=== PATIENT | female | born 2000 | race Caucasian/White ===

== ENCOUNTER 2020-02-23 04:01 | Inpatient (IN) | payer MEDICAID ==
[2020-02-23] VITALS (35 sets, daily range): BP systolic 103–139; BP diastolic 58–85
[~2020-02-23] VITALS: Ht 165.1 cm; Wt 66.8 kg
--- NOTE | 2020-02-23 04:13 | NUR ---
DRE LOPEZ presented to unit via WC from ED, accompanied by SO, with c/o CONTRACTIONS,POSS WATER BROKE. DRE LOPEZ weighed, gowned, voided, and to bed. EFHM and TOCO applied, VS taken. DRE LOPEZ oriented to bed controls, call light, TV, heat, and A/C controls.
[2020-02-23 05:29] LABS: BILIRUBIN,URINE NEGATIVE (NEGATIVE); CLARITY,URINE CLEAR; COLOR,URINE YELLOW; GLUCOSE, URINE (UA) NEGATIVE (NEGATIVE); KETONES,URINE 2+ (NEGATIVE); LEUKOCYTE ESTERASE ,URINE NEGATIVE (NEGATIVE); NITRITE,URINE NEGATIVE (NEGATIVE); PROTEIN,URINE TRACE (NEGATIVE)
[2020-02-23 05:36] LABS: BACTERIA,URINE FEW /HPF; RBC,URINE RARE /HPF; WBC,URINE RARE /HPF
--- NOTE | 2020-02-23 05:50 | NUR ---
Dr. Cool called with update of pt. Informed of pt. contraction pattern, SVE's, and results of amnioswabs. Urine results read to and informed that pt is orally hydrating at this time. orders for pt so stay and be rechecked in two hours.
[2020-02-23] MEDS ORDERED: D5 LR IV SOLUTION 1,000 ML IV ONE (07:50)
[2020-02-23 08:23] LABS: BASOPHILS % (AUTO) 0 % (0-10); EOSINOPHILS # (AUTO) 0.1 10^3/uL (0.0-0.3); EOSINOPHILS % (AUTO) 1 % (0-10); HEMATOCRIT 37 % (35-52); HEMOGLOBIN 12.6 G/DL (11.5-16.0); LYMPHOCYTES # (AUTO) 1.9 X 10^3 (1.0-4.0); LYMPHOCYTES % (AUTO) 17 % (12-44); MEAN CORPUSCULAR HEMOGLOBIN 31 PG (25-34); MEAN CORPUSCULAR HGB CONC 34 G/DL (32-36); MEAN CORPUSCULAR VOLUME 91 FL (80-99); MEAN PLATELET VOLUME 10.8 FL (7.4-10.4); MONOCYTES # (AUTO) 0.9 X 10^3 (0.0-1.0); MONOCYTES % (AUTO) 8 % (0-12); NEUTROPHILS # (AUTO) 8.2 X 10^3 (1.8-7.8); NEUTROPHILS % (AUTO) 74 % (42-75); PLATELET COUNT 318 10^3/uL (130-400); RED CELL DISTRIBUTION WIDTH 13.1 % (10.0-14.5); WHITE BLOOD COUNT 11.1 10^3/uL (4.3-11.0)
[2020-02-23] MEDS ORDERED: D5 LR IV SOLUTION 1,000 ML IV SCH (08:25)
[2020-02-23] MEDS ORDERED: OXYTOCIN PRE-MIX DRIP 500 ML IV SCH ×2 (08:25→11:52)
[2020-02-23] MEDS ORDERED: MINERAL OIL CONCENTRATE 99.9% 15 ML UDC TOP PRN (08:30)
[2020-02-23] MEDS ORDERED: fentaNYL 2 mcg/ml BUPIVA 0.125 100 ML ONE (08:30)
[2020-02-23] MEDS ORDERED: fentaNYL INJECTION 100 MCG/2 ML AMP ONE (08:45)
[2020-02-23] MEDS ORDERED: BUPIVACAINE 0.25% 30 ML (SENSORCAINE) VIAL ONE (08:45)
--- NOTE | 2020-02-23 08:53 | NUR ---
0853 Dr. DEL REAL here for epidural placement. Procedure explained, consent reviewed and signed by anesthesia. Questions answered to patient's satisfaction. Time out taken to verify correct patient/procedure. 0855 Patient up to side of bed, assisted into sitting position. 0859 Betadine prep done x3 and sterile drape applied. 0901 (0902) Local done, see anesthesia record. 0906 Test dose given, see anesthesia record for drug and dosage. Epidural catheter secured in place. Epidural placement complete. 0910 Assisted back into bed, monitors adjusted. Epidural dosed, see anesthesia record. Epidural of Sufenta/Bupvicaine @12cc/hr stated per pump. Patient tolerated procedure well.
[2020-02-23] MEDS ORDERED: WATER (STERILE) FOR INJECTION 20 ML ONE (10:15)
[2020-02-23] MEDS ORDERED: ONDANSETRON 4 MG/2 ML (SDV) Z0FRAN ONE (10:15)
[2020-02-23] MEDS ORDERED: AMPICILLIN FOR IV USE 2,000 MG VIAL ONE (10:15)
[2020-02-23] MEDS ORDERED: AMPICILLIN FOR IV USE 2,000 MG in WATER (STERILE) FOR INJECTION 14.8 ML IV SCH (10:20)
[2020-02-23] MEDS ORDERED: fentaNYL 2 mcg/ml BUPIVA 0.125 100 ML IV SCH (11:03)
[2020-02-23] MEDS ORDERED: LACTATED RINGERS 1,000 ML IV ONE (11:03)
[2020-02-23] MEDS ORDERED: LIDOCAINE 1% INJ 20 ML 20 ML VIAL ONE (11:04)
[2020-02-23] MEDS ORDERED: CATHETER FLUSH 10 ML SYR IV PRN (11:15)
[2020-02-23] MEDS ORDERED: EPIDURAL (fentaNYL 2 MCG/ML BUPIVA 0.125%)100 ML BAG EPI SCH (11:15)
[2020-02-23] MEDS ORDERED: ONDANSETRON 4 MG/2 ML (SDV) Z0FRAN IV PRN (11:15)
[2020-02-23] MEDS ORDERED: NALOXONE 0.4 MG/ML 1 ML (NARCAN) VIAL IV PRN (11:15)
[2020-02-23] MEDS ORDERED: diphenhydrAMINE 50 MG/ML INJ (BENADRYL) IV PRN (11:15)
--- NOTE | 2020-02-23 11:52 | History & Physical-OB/GYN ---
History of Present Illness History of Present Illness Reason for visit/HPI Ms. Prakash presented secondary to leaking bloody fluid at 38 weeks Date of Admission February 23, 2020 at 07:56 Date Seen by a Provider: February 23, 2020 Time Seen by a Provider: 09:00 I consulted on this patient on 02/23/20 11:46 Attending Physician Niels Cool DO Admitting Physician Niels Cool DO Consult Allergies and Home Medications Allergies Coded Allergies: No Known Drug Allergies (Unverified , 02/23/20) Home Medications No Active Prescriptions or Reported Meds Patient Home Medication List Home Medication List Reviewed: Yes Past Uippkyz-Wotphw-Zrewct Hx Patient Social History Marrital Status: single Number of Children: 0 Number of living children: 0 Employed/Student: unemployed Alcohol Use: Denies Use Recreational Drug Use: No Smoking Status: Current Everyday Smoker Type Used: Cigarettes 2nd Hand Smoke Exposure: No Physical Abuse Screen: No Sexual Abuse: No Recent Foreign Travel: No Contact w/other who traveled: No Recent Hopitalizations: No Immunizations Up To Date Pediatric: Yes Seasonal Allergies Seasonal Allergies: Yes Surgeries No Respiratory No Cardiovascular No Neurological No Reproductive System Expected Date of Delivery: March 12, 2020 Hx : 1 Hx Para: 0 Sexually Transmitted Disease: Yes (HX: CHLAMYDIA) HIV/AIDS: No Female Reproductive Disorders: Denies Genitourinary No Gastrointestinal No Musculoskeletal No Endocrine History of Endocrine Disorders: No HEENT History of HEENT Disorders: No Cancer No Psychosocial History of Psychiatric Problem: Yes (WHEN 12 Y/1- SUICIDE ATTEMPT) Behavioral Health Disorders: Suicide Attempts, Depression Integumentary History of Skin or Integumenta: No Blood Transfusions History of Blood Disorders: No Adverse Reaction to a Blood Tr: No Family Medical History Family Hx: FH: rheumatoid arthritis 19 FATHER Review of Systems Constitutional: see HPI Physical Exam Physical Exam Vital Signs Vital Signs Date Time Temp Pulse Resp B/P (MAP) Pulse Ox O2 Delivery O2 Flow Rate FiO2 02/23/20 06:22 36.8 68 18 134/84 (101) Room Air 02/23/20 05:01 36.7 77 18 97 Room Air 02/23/20 04:56 36.7 74 18 97 Room Air Capillary Refill : Less Than 3 Seconds Labs Laboratory Tests 02/23/20 04:40: Urine Color YELLOW, Urine Clarity CLEAR, Urine pH 7.0, Urine Specific [place] 1.025H, Urine Protein TRACEH, Urine Glucose (UA) NEGATIVE, Urine Ketones 2+H, Urine Nitrite NEGATIVE, Urine Bilirubin NEGATIVE, Urine Urobilinogen 0.2, Urine Leukocyte Esterase NEGATIVE, Urine RBC (Auto) 3+H, Urine RBC RARE, Urine WBC RARE, Urine Squamous Epithelial Cells 5-10, Urine Renal Epithelial Cells NONE, Urine Crystals NONE, Urine Bacteria FEWH, Urine Casts NONE, Urine Mucus NEGATIVE, Urine Culture Indicated NO 02/23/20 08:05: White Blood Count 11.1H, Red Blood Count 4.10L, Hemoglobin 12.6, Hematocrit 37, Mean Corpuscular Volume 91, Mean Corpuscular Hemoglobin 31, Mean Corpuscular Hemoglobin Concent 34, Red Cell Distribution Width 13.1, Platelet Count 318, Mean Platelet Volume 10.8H, Neutrophils (%) (Auto) 74, Lymphocytes (%) (Auto) 17, Monocytes (%) (Auto) 8, Eosinophils (%) (Auto) 1, Basophils (%) (Auto) 0, Neutrophils # (Auto) 8.2H, Lymphocytes # (Auto) 1.9, Monocytes # (Auto) 0.9, Eosinophils # (Auto) 0.1, Basophils # (Auto) 0.0 General Appearance: No Apparent Distress, WD/WN Respiratory: Chest Non Tender, Lungs Clear, Normal Breath Sounds Cardiovascular: Regular Rate, Rhythm, No Murmur Abdominal: normal bowel sounds Labia: WNL Vagina: WNL Cervix: WNL Cervix OS: open (4 cm/90%/0 Vertex/Intact) Uterus: Enlarged (Gravid) Extremity: Normal Inspection, Non Tender Assessment/Plan Assessment and Plan Intrauterine at 38 weeks 2. GBS Positive Plan: Augment labor with Pitocin. AROM. Epidural Anesthesia. I expect a normal spontaneous vaginal delivery Admission Diagnosis Admission Status: Inpatient Order (span 2 midnights) Reason for Inpatient Admission: Active labor Clinical Quality Measures DVT/VTE Risk/Contraindication: Risk Factor Score Per Nursin RFS Level Per Nursing on Admit: 2=Moderate NIESL COOL DO February 23, 2020 11:52
--- NOTE | 2020-02-23 11:57 | OB Labor & Delivery Record ---
Vag Delivery Note Vag Delivery Note Date of Delivery: 02/23/20 Preoperative Diagnosis: Karli Prakash is a (19 /Para 1 / 0,Gestational Age (wks)37with [GBS Positive] Postoperative Diagnosis: Same Surgeon: MONY JENSEN Hotel Night Auditor: [None] Anesthesia: [Epidural] Delivery Type: [Normal Spontaneous Vaginal Delivery with Midline Episiotomy] Findings: [] Viable [Female] infant, apgars [], weight [5 lb 15 oz] Lacerations: Midline Episiotomy, no extension Intact placenta with 3 vessel cord. No nuchal cord, body cord or shoulder dystocia Cytotec 800 mcg placed for hemorrhage prophylaxis Estimated Blood Loss: [300] ml Complications: None Condition: Stable Description of Procedure: The patient is a 19 year old female who presented [with the onset of contractions and pelvic pressure]. She was admitted and informed consent was obtained. Her labor course was unremarkable. She progressed to complete dilatation and began to push. She was then set up for delivery. The 's head was delivered atraumatically in the [CHANA] position. The shoulders and remainder of the infant's body were then delivered without difficulty. Upon delivery, the head was held below the level of the perineum and the mouth and nares were bulb suctioned. The cord was doubly clamped and cut and the was handed off to the pediatric staff where NRP protocol was followed. An intact placenta with 3-vessel cord delivered via Eleonora and there was found to be minimal bleeding.~ Vigorous fundal massage was performed and the fundus was found to be firm. IV oxytocin was given. Examination of the vagina and perineum revealed a [midline episiotomy with no extension laceration repaired in the usual fashion with 2-0 and 3-0 vicryl suture. Following the repair, sponge, instrument and needle counts were correct. Mom and baby were both in stable condition in the labor suite. Vitals - Labs Vital Signs - I&O Vital Signs Date Time Temp Pulse Resp B/P (MAP) Pulse Ox O2 Delivery O2 Flow Rate FiO2 02/23/20 06:22 36.8 68 18 134/84 (101) Room Air 02/23/20 05:01 36.7 77 18 97 Room Air 02/23/20 04:56 36.7 74 18 97 Room Air Labs Laboratory Tests 02/23/20 04:40: Urine Color YELLOW, Urine Clarity CLEAR, Urine pH 7.0, Urine Specific [place] 1.025H, Urine Protein TRACEH, Urine Glucose (UA) NEGATIVE, Urine Ketones 2+H, Urine Nitrite NEGATIVE, Urine Bilirubin NEGATIVE, Urine Urobilinogen 0.2, Urine Leukocyte Esterase NEGATIVE, Urine RBC (Auto) 3+H, Urine RBC RARE, Urine WBC RARE, Urine Squamous Epithelial Cells 5-10, Urine Renal Epithelial Cells NONE, Urine Crystals NONE, Urine Bacteria FEWH, Urine Casts NONE, Urine Mucus NEGATIVE, Urine Culture Indicated NO 02/23/20 08:05: White Blood Count 11.1H, Red Blood Count 4.10L, Hemoglobin 12.6, Hematocrit 37, Mean Corpuscular Volume 91, Mean Corpuscular Hemoglobin 31, Mean Corpuscular Hemoglobin Concent 34, Red Cell Distribution Width 13.1, Platelet Count 318, Mean Platelet Volume 10.8H, Neutrophils (%) (Auto) 74, Lymphocytes (%) (Auto) 17, Monocytes (%) (Auto) 8, Eosinophils (%) (Auto) 1, Basophils (%) (Auto) 0, Neutrophils # (Auto) 8.2H, Lymphocytes # (Auto) 1.9, Monocytes # (Auto) 0.9, Eosinophils # (Auto) 0.1, Basophils # (Auto) 0.0 MONY JENSEN DO February 23, 2020 11:57
[2020-02-23] MEDS ORDERED: BENZOCAINE/MENTHOL (DERMOPLAST) 60 ML CAN TP PRN (12:00)
[2020-02-23] MEDS ORDERED: MEASLES,MUMPS,RUBELLA 1 EA INJ SQ ONE (12:00)
[2020-02-23] MEDS ORDERED: TETANUS,DIPTH,PERTUSS P/F (BOOSTRIX) 0.5 ML VIAL IM ONE (12:00)
[2020-02-23] MEDS ORDERED: WITCH HAZEL(TUCKS) 40 EA JAR TOP PRN (12:00)
[2020-02-23] MEDS ORDERED: DIBUCAINE (NUPERCAINAL) 1% OINT 30 GM TOP PRN (12:00)
[2020-02-23] MEDS: ACETAMINOPHEN 500 MG TAB (TYLENOL) PO SCH ×2 (12:01→18:56)
[2020-02-23] MEDS: IBUPROFEN 800 MG (MOTRIN) TAB PO SCH (13:54)
[2020-02-23] MEDS ORDERED: CATHETER FLUSH 10 ML SYR IV SCH ×2 (14:00)
[2020-02-23] MEDS ORDERED: AMPICILLIN FOR IV USE 1,000 MG in WATER (STERILE) FOR INJECTION 7.4 ML IV SCH (14:30)
--- NOTE | 2020-02-23 14:49 | NUR ---
REFER TO LABOR FLOW SHEET.
[2020-02-24 01:00] VITALS: BP 116/79
[2020-02-24] MEDS: IBUPROFEN 800 MG (MOTRIN) TAB PO SCH ×2 (01:03→09:37)
[2020-02-24] MEDS: DOCUSATE SODIUM 100 MG (COLACE) CAP PO SCH ×2 (01:03→09:37)
[2020-02-24] MEDS: ACETAMINOPHEN 500 MG TAB (TYLENOL) PO SCH ×3 (01:03→13:11)
[2020-02-24 05:19] VITALS: BP 114/69
[2020-02-24 06:11] LABS: BASOPHILS % (AUTO) 0 % (0-10); EOSINOPHILS # (AUTO) 0.1 10^3/uL (0.0-0.3); EOSINOPHILS % (AUTO) 1 % (0-10); HEMATOCRIT 36 % (35-52); HEMOGLOBIN 12.1 G/DL (11.5-16.0); LYMPHOCYTES # (AUTO) 2.7 X 10^3 (1.0-4.0); LYMPHOCYTES % (AUTO) 20 % (12-44); MEAN CORPUSCULAR HEMOGLOBIN 31 PG (25-34); MEAN CORPUSCULAR HGB CONC 34 G/DL (32-36); MEAN CORPUSCULAR VOLUME 92 FL (80-99); MEAN PLATELET VOLUME 10.6 FL (7.4-10.4); MONOCYTES # (AUTO) 0.9 X 10^3 (0.0-1.0); MONOCYTES % (AUTO) 7 % (0-12); NEUTROPHILS % (AUTO) 73 % (42-75); PLATELET COUNT 302 10^3/uL (130-400); WHITE BLOOD COUNT 13.7 10^3/uL (4.3-11.0)
[2020-02-24] MEDS ORDERED: PRENATAL VITAMIN 1 EA TAB PO SCH (07:00)
--- NOTE | 2020-02-24 07:25 | NUR ---
Dr. Cool here to see pt. Plan to discharge pt at 24hrs.
[2020-02-24] MEDS ORDERED: IBUP-1780 PO (07:35)
[2020-02-24] MEDS ORDERED: OXYC5TAB96 PO (07:35)
[2020-02-24] MEDS ORDERED: ACET-93 PO (07:35)
[2020-02-24] MEDS ORDERED: DCS100C PO (07:35)
--- NOTE | 2020-02-24 07:43 | Discharge Summary ---
Diagnosis/Chief Complaint Date of Admission February 23, 2020 at 07:56 Date of Discharge January 25, 2020 Discharge Date: February 24, 2020 Discharge Time: 12:00 Admission Diagnosis Admission Diagnosis Intrauterine at 38 1/7 weeks 2. GBS Positive Discharge Diagnosis Intrauterine at 38 1/7 weeks--delivered 2. GBS Positive Reason Hospital Visit Ms. Prakash presented secondary to leaking bloody fluid at 38 weeks Discharge Summary Hospital Course Was the Problem List Reviewed?: Yes Hospital Course Ms. Prakash presented to Labor & Delivery at 38 1/7 weeks stating that she is leaking fluid. She wasn't ruptured, but she was kasandra regularly. She was monitored and found to have definitive cervical change--going from 2 cm to 4.5 cm. At this point she was admitted for the onset of labor. She was Group B Strept Positive, consequently, IV antibiotics were started along with Pitocin for augmentation. I artificially rupture her membranes and she received an epidural for antepartum pain management. She progressed to complete rapidly. After a short course of pushing delivered a healthy viable female over a midline episiotomy. Her episiotomy was repaired in the normal standard fashion. The remainder of her hospitalization was unremarkable. Her vital signs remained stable throughout her hospital course. On day #1, she was discharged to home with instructions, prescriptions and a follow up appointment. Labs Laboratory Tests 02/23/20 04:40: Urine Specific [place] 1.025H, Urine Protein TRACEH, Urine Ketones 2+H, Urine RBC (Auto) 3+H, Urine Bacteria FEWH 02/23/20 08:05: White Blood Count 11.1H, Red Blood Count 4.10L, Mean Platelet Volume 10.8H, Neutrophils # (Auto) 8.2H 02/24/20 05:46: White Blood Count 13.7H, Red Blood Count 3.91L, Mean Platelet Volume 10.6H, Neutrophils # (Auto) 10.0H Procedures None. Discharge Physical Examination Allergies: Coded Allergies: No Known Drug Allergies (Unverified , 02/23/20) Vitals & I&Os Vital Signs Date Time Temp Pulse Resp B/P (MAP) Pulse Ox O2 Delivery O2 Flow Rate FiO2 02/24/20 05:19 36.5 70 18 114/69 (84) 97 Room Air General Appearance: Alert, Oriented X3, Cooperative HEENT: Atraumatic Respiratory: Clear to Auscultation, Normal Air Movement Cardiovascular: Regular Rate, No Murmurs Abdominal: Normal Bowel Sounds, Soft, No Tenderness Extremities: No Clubbing, No Cyanosis Skin: No Rashes Neuro: Normal Gait, Normal Speech Psych/Mental Status: Mental Status NL Discharge Home Medications Reviewed and agree with Discharge Medication list on patient's Discharge Instruction sheet Instructions to Patient/Family Please see electronic discharge instructions given to patient. Clinical Quality Measures DVT/VTE Risk/Contraindication: Risk Factor Score Per Nursin RFS Level Per Nursing on Admit: 2=Moderate MONY JENSEN DO February 24, 2020 07:43
--- NOTE | 2020-02-24 08:49 | Anesthesia-Regional Post-Op ---
Regional Patient Condition Mental Status: Alert, Oriented x3 Circulation: Same as Pre-Op Headache: Absent Sensation: Full Recovery Motor Block: Absent Post Op Complications Complications None Follow Up Care/Instructions Patient Instructions None needed. Anesthesia/Patient Condition Patient is doing well, no complaints, stable vital signs, no apparent adverse anesthesia problems. No complications reported per nursing. MANOLO SMITH CRNA February 24, 2020 08:49
[2020-02-24 09:35] VITALS: BP 117/63
--- NOTE | 2020-02-24 13:40 | NUR ---
Dismissal instructions reviewed with patient. States understanding. Asked appropriate questions.
--- NOTE | 2020-02-24 14:00 | NUR ---
Dismissed ambulatory with , out hospital exit to private car. Follow up appointment made. Prescriptions given. Infant restrained in approved car seat.
== END 2020-02-24 14:00 | disposition home or self-care (01) | DRG 807 ==
LOC: LDRP 04:01 → WSo 04:01 → LDRP 07:56
PROVIDERS: ADMIT Obstetrics & Gynecology; ATTEND Obstetrics & Gynecology
PROC: 10E0XZZ Delivery of Products of Conception, External Approach (ICD-10-PCS; principal; 2020-02-23)
PROC: 0W8NXZZ Division of Female Perineum, External Approach (ICD-10-PCS; 2020-02-23)
DX: O99.824 Streptococcus B carrier state complicating childbirth (principal); Z37.0 Single live birth; Z3A.38 38 weeks gestation of pregnancy; O99.334 Smoking (tobacco) complicating childbirth; F17.210 Nicotine dependence, cigarettes, uncomplicated; O99.344 Other mental disorders complicating childbirth; F32.9 Major depressive disorder, single episode, unspecified
CPT/HCPCS: 36415; 81000; 85025; 86850; 86900; 86901; 87077; 87088; 99212

== ENCOUNTER 2020-12-17 18:40 | Emergency (ER) | payer MEDICAID ==
[~2020-12-17 18:40] MED LIST: ACET-93 PO; DCS100C PO; IBUP-1780 PO; OXC5T PO
[2020-12-17] MEDS ORDERED: LIDOCAINE 1% INJ 20 ML 20 ML VIAL ONE (18:45)
[2020-12-17] MEDS ORDERED: morphine INJ 10 MG/ML 1ML (SYR OR VIAL) IM STA (19:01)
[2020-12-17] MEDS ORDERED: ONDANSETRON 4 MG (ZOFRAN) ORAL DISSOLVE TAB PO STA (19:01)
--- NOTE | 2020-12-17 19:46 | ED Upper Extremity ---
General Chief Complaint: Laceration Stated Complaint: RT RING FINGER LAC Nursing Triage Note: Has laceration on R fourth finger from a carrera chain. States she saw the bone when it happened. Is UTD on tetanus vaccine. Nursing Sepsis Screen: No Definite Risk Source: patient Exam Limitations: no limitations History of Present Illness Date Seen by Provider: Dec 17, 2020 Time Seen by Provider: 19:00 Initial Comments Patient is a 20-year-old right-handed female who presents with large laceration Y-shaped flap avulsion with exposed tendon involving the flexor surface of right ring finger. Patient cut her finger on a keychain ring which tore the skin. Patient has 7 cm flap. Neurovascularly intact. Bleeding controlled. Tetanus up-to-date. Injury occurred just prior to ED arrival. Onset: just prior to arrival Pain/Injury Location: right hand Method of Injury: other Modifying Factors: Improves With Other Allergies and Home Medications Allergies Coded Allergies: No Known Drug Allergies (Unverified , 02/23/20) Home Medications Acetaminophen 500 Mg Tablet, 1,000 MG PO Q6HR Prescribed by: MONY DIANAS on 02/24/20 0735 Docusate Sodium 100 Mg Capsule, 100 MG PO BID Prescribed by: MONY E SEALS on 02/24/20 0735 Ibuprofen 800 Mg Tablet, 800 MG PO Q8HR Prescribed by: MONY E SEALS on 02/24/20 0735 Oxycodone Hcl 5 Mg Tablet, 5 MG PO Q6H Prescribed by: MONY E SEALS on 02/24/20 0735 Patient Home Medication List Home Medication List Reviewed: Yes Review of Systems Constitutional: see HPI EENTM: see HPI Respiratory: see HPI Cardiovascular: see HPI Gastrointestinal: see HPI : Yes Musculoskeletal: see HPI Skin: see HPI Psychiatric/Neurological: See HPI All Other Systems Reviewed Negative Unless Noted: Yes Past Mbszzyd-Gmuexg-Bzrkdu Hx Past Med/Social Hx: Reviewed Nursing Past Med/Soc Hx Patient Social History Alcohol Use: Denies Use Drug of Choice: marijauna Smoking Status: Current Everyday Smoker Type Used: Cigarettes 2nd Hand Smoke Exposure: No Recent Infectious Disease Expo: No Recent Hopitalizations: No Immunizations Up To Date Tetanus Booster (TDap): Unknown PED Vaccines UTD: Yes Seasonal Allergies Seasonal Allergies: Yes Past Medical History Surgeries: No Respiratory: No Cardiac: No Neurological: No Female Reproductive Disorders: Denies Sexually Transmitted Disease: Yes (HX: CHLAMYDIA) HIV/AIDS: No Genitourinary: No Gastrointestinal: No Musculoskeletal: No Endocrine: No HEENT: No Cancer: No Psychosocial: Yes (WHEN 12 Y/1- SUICIDE ATTEMPT) Suicide Attempts, Depression Integumentary: No Blood Disorders: No Adverse Reaction/Blood Tranf: No Family Medical History FH: rheumatoid arthritis 19 FATHER Physical Exam Vital Signs Vital Signs - First Documented 12/17/20 18:43 Temp 37.0 Pulse 105 Resp 16 B/P (MAP) 119/76 (90) Pulse Ox 98 Capillary Refill : Less Than 3 Seconds Height, Weight, BMI Height: '" Weight: lbs. oz. kg; 24.50 BMI Method: General Appearance: mild distress (Secondary to pain) Hand: Right ( 7cm large laceration Y-shaped flap avulsion with exposed tendon involving the flexor surface of right ring finger extending from proximal ph alanx to middle phalanx) Procedures/Interventions Wound Location: Upper Extremities Wound Length (cm): 7 Wound Explored: no foreign body removed Irrigated w/ Saline (ccs): 200 Anesthesia: 1% Lidocaine Volume Anesthetic (ccs): 5 Wound Debrided: minimal Suture: Prolene Suture Size: 4-0 Number of Sutures: 14 (Running locking sutures) Layer Closure?: 1 Sterile Dressing Applied?: Yes Progress Patient tolerated procedure well. Progress/Results/Core Measures Results/Orders My Orders Orders - BRONSON FINNEY DO Lidocaine 1% Inj 20 Ml (Xylocaine 1% Inj (12/17/20 18:45) Morphine Injection (Morphine Injection (12/17/20 19:01) Ondansetron Oral Dissolve Tab (Zofran (12/17/20 19:01) Medications Given in ED Current Medications Medications Dose Ordered Sig/Maggie Route Start Time Stop Time Status Last Admin Dose Admin Lidocaine HCl 20 ml STK-MED ONCE .ROUTE 12/17/20 18:45 12/17/20 18:51 DC 12/17/20 18:57 20 ML Vital Signs/I&O 12/17/20 18:43 Temp 37.0 Pulse 105 Resp 16 B/P (MAP) 119/76 (90) Pulse Ox 98 Blood Pressure Mean: 90 Departure Communication (Admissions) Wound cleaned, and closed with good wound edge approximation and then bandage. Typical wound care instructions provided. Return precautions reviewed. Patient verbalizes understanding agreement discharge instructions prior to departure.. Impression Primary Impression: Laceration of right ring finger Disposition: HOME, SELF-CARE Condition: Stable Departure-Patient Inst. Decision time for Depature: 20:02 Referrals: NO,LOCAL PHYSICIAN (PCP/Family) Primary Care Physician Patient Instructions: Laceration Repair With Stitches ED Add. Discharge Instructions: Please keep wound clean covered and dry. Take ibuprofen for pain and hydrocodone as needed for additional relief. Complete full course of antibiotics. Return to the ED if signs of infection or in 12 days for suture removal. All discharge instructions reviewed with patient and/or family. Voiced understanding. Scripts Hydrocodone/Acetaminophen (Hydrocodone-Acetamin 5-325 mg) 1 Each Tablet 1 TAB PO Q4H PRN for PAIN-MODERATE (5-7), #14 TAB Prov: BRONSON FINNEY DO 12/17/20 Cephalexin (Cephalexin) 500 Mg Tablet 500 MG PO TID for 21 Days, TAB Prov: BRONSON FINNEY DO 12/17/20 BRONSON FINNEY DO Dec 17, 2020 19:46
[2020-12-17] MEDS ORDERED: ACHD5005 PO (20:04)
[2020-12-17] MEDS ORDERED: CEPH500T PO (20:04)
[2020-12-17 20:11] VITALS: BP 106/82
== END 2020-12-17 20:11 | disposition home or self-care (01) ==
LOC: EDUNIT# 18:40 → ER FS 18:41
DX: S61.214A Laceration without foreign body of right ring finger without damage to nail, initial encounter (principal); F17.210 Nicotine dependence, cigarettes, uncomplicated; Z82.61 Family history of arthritis; W49.04XA Ring or other jewelry causing external constriction, initial encounter
CPT/HCPCS: 12002

== ENCOUNTER 2020-12-28 13:15 | Emergency (ER) | payer MEDICAID ==
[~2020-12-28] VITALS: Ht 165.1 cm; Wt 75.0 kg
[~2020-12-28 13:15] MED LIST changes: +ACHD5005 PO; +CEPH500T PO
--- NOTE | 2020-12-28 13:30 | ED Suture Removal/Wound Check ---
Suture/Wound Re-check Suture Removal/Wound Recheck : Suture Removal/Wound Recheck: Sutures removed by RN General Appearance: WD/WN, no apparent distress Neuro/Tendon: normal motor functions, normal tendon functions, sensory deficit (decreased sensation to light touch on lateral aspect of tip of finger) Skin Exam: normal color, warm/dry Physical Exam Vital Signs Capillary Refill : General Appearance: WD/WN, no apparent distress Extremities: normal capillary refill Departure Impression Primary Impression: Encounter for removal of sutures Disposition: HOME, SELF-CARE Condition: Stable Departure-Patient Inst. Decision time for Depature: 13:28 Referrals: NO,LOCAL PHYSICIAN (PCP) Primary Care Physician EZRA FAUST MD [facility] Patient Instructions: SUTURE REMOVAL - UNCOMPLICATED Add. Discharge Instructions: Keep clean with soap and water but do not soak your hands or the finger If you have any additional concerns or problems you could follow up with Orthopedics and see Dr. Faust or his Nurse Practitioner Isaac Ramos by calling [phone]. You could establish care with a primary care provider by calling [phone] to get established with someone from the [facility]. All discharge instructions reviewed with patient and/or family. Voiced understanding. SKINNY BLISS MD Dec 28, 2020 13:30
[2020-12-28 13:40] VITALS: BP 115/56
== END 2020-12-28 13:38 | disposition home or self-care (01) ==
LOC: EDUNIT# 13:15 → ER FS 13:18
DX: Z48.02 Encounter for removal of sutures (principal)

== ENCOUNTER 2022-10-09 20:55 | Emergency (ER) | payer MEDICAID ==
[~2022-10-09] VITALS: Ht 167.7 cm; Wt 72.0 kg
[~2022-10-09 20:55] MED LIST changes: -DCS100C PO; +DOCU-239 PO
[2022-10-09 21:40] VITALS: BP 118/81
[2022-10-09] MEDS ORDERED: cefTRIAXone 1,000 MG VIAL IM STA (21:58)
[2022-10-09] MEDS ORDERED: LIDOCAINE 1% INJ 20 ML VIAL INJ ONE (22:00)
--- NOTE | 2022-10-09 22:05 | ED EENT ---
History of Present Illness General Chief Complaint: Ear Problems Stated Complaint: L EAR PAIN/CAN NOT HEAR Nursing Triage Note: Pt presents with c/o L ear pain that started earlier today. She reports taking nyquil with no relief. Source: patient History of Present Illness Date Seen by Provider: Oct 09, 2022 Time Seen by Provider: 21:44 Initial Comments 22-year-old female presenting with complaints of sudden onset left ear pain this evening. She has had an upper respiratory infection since September 21. She felt like she was improving but then today had the onset of left ear pain. She did have recurrent ear infections as a child. She has decreased hearing out of the left ear and increased pain. She tried taking NyQuil for her symptoms but it did not help with the pain. She has had no bleeding or drainage from the left e ar. She denies any fever, chills, abdominal pain, vision change, headache, sore throat Timing/Duration: abrupt Severity: severe Location: ear (L) Prearrival Treatment: over the counter meds Modifying Factors: Worse With Coughing Associated Symptoms: change in hearing (Decreased hearing from the left ear), cough; No drooling, No ear drainage, No facial pain/swelling, No fever, No malaise, No nasal congestion/drainage, No poor fluid intake, No poor solids intake, No sinus infection, No sore throat, No tooth pain, No voice change Allergies and Home Medications Allergies Coded Allergies: No Known Drug Allergies (Unverified , 02/23/20) Patient Home Medication List Home Medication List Reviewed: Yes Acetaminophen (Acetaminophen) 500 Mg Tablet, 1,000 MG PO Q6HR Prescribed by: MONY JENSEN on 02/24/20 0735 Amoxicillin/Potassium Clav (Amox Tr-K Clv 875-125 mg Tab) 875 Mg-125 Mg Tablet, 1 EACH PO BID Prescribed by: SKINNY BLISS on 10/09/222205 Cephalexin (Cephalexin) 500 Mg Tablet, 500 MG PO TID Prescribed by: BRONSON FINNEY on 12/17/202003 Docusate Sodium (Dok) 100 Mg Capsule, 100 MG PO BID Prescribed by: MONY JENSEN on 02/24/20 0735 Hydrocodone/Acetaminophen (Hydrocodone-Acetamin 5-325 mg) 1 Each Tablet, 1 TAB PO Q4H PRN for PAIN-MODERATE (5-7) Prescribed by: BRONSON FINNEY on 12/17/202003 Ibuprofen (Ibuprofen) 800 Mg Tablet, 800 MG PO Q8HR Prescribed by: MONY JENSEN on 02/24/20 07 Mometasone Furoate (Mometasone Furoate) 50 Mcg/Actuation [place].pump, 2 SPRAYS NS BID Prescribed by: SKINNY BLISS on 10/09/222205 Oxycodone Hcl (Oxyir Tablet) 5 Mg Tablet, 5 MG PO Q6H Prescribed by: MONY JENSEN on 02/24/20 07 Review of Systems Review of Systems Constitutional: No chills, No fever Eyes: No Symptoms Reported Ears: See HPI Nose: no symptoms reported Mouth: no symptoms reported Throat: no symptoms reported Respiratory: cough Cardiovascular: no symptoms reported Gastrointestinal: no symptoms reported Musculoskeletal: no symptoms reported Skin: No rash Neurological: Headache (Left-sided headache due to ear pain) Past Sylhcnz-Nxlcdc-Hlqozb Hx Immunizations Up To Date Tetanus Booster (TDap): Unknown PED Vaccines UTD: Yes Seasonal Allergies Seasonal Allergies: Yes Past Medical History Surgeries: No Respiratory: No Cardiac: No Neurological: No Female Reproductive Disorders: Denies Sexually Transmitted Disease: Yes (HX: CHLAMYDIA) HIV/AIDS: No Genitourinary: No Gastrointestinal: No Musculoskeletal: No Endocrine: No HEENT: No Cancer: No Psychosocial: Yes (WHEN 12 Y/1- SUICIDE ATTEMPT) Suicide Attempts, Depression Integumentary: No Blood Disorders: No Adverse Reaction/Blood Tranf: No Family Medical History FH: rheumatoid arthritis 19 FATHER Physical Exam Vital Signs Vital Signs - First Documented 10/09/22 21:40 Temp 36.8 Pulse 88 Resp 18 B/P (MAP) 118/81 (93) Height, Weight, BMI Height: '" Weight: lbs. oz. kg; 25.00 BMI Method: General Appearance: WD/WN, mild distress Eyes: bilateral eye PERRL, bilateral eye EOMI Ears: left ear erythema (External auditory canal with erythema and red, dull, bulging TM), left ear TM red, left ear TM bulging; bilateral ear TM dull Nose: normal inspection Mouth/Throat: normal mouth inspection, pharynx normal Neck: non-tender, full range of motion, supple, lymphadenopathy (L) Cardiovascular: normal peripheral pulses, regular rate, rhythm Respiratory: chest non-tender, lungs clear, normal breath sounds, no respiratory distress, no accessory muscle use Gastrointestinal: normal bowel sounds, non tender, soft, no pulsatile mass Neurologic/Psychiatric: alert, oriented x 3 Skin: warm/dry Procedures/Interventions Suture Size: 4-0 Progress/Results/Core Measures Results/Orders My Orders Orders - SKINNY BLISS MD Ceftriaxone (Rocephin) (10/09/22 21:58) Dexamethasone Injection (Decadron Inje (10/09/22 21:58) Rx-Hydrocodone/Apap 5-325 Mg (Rx-Vicodin (10/09/22 22:00) Lidocaine 1% Inj 20 Ml (Xylocaine 1% Inj (10/09/22 22:00) Medications Given in ED Current Medications Medications Dose Ordered Sig/Maggie Route Start Time Stop Time Status Last Admin Dose Admin Acetaminophen/ Hydrocodone Bitart 1 ea Q4H PRN PO 10/09/22 22:00 12 22:32 DC 10/09/22 22:26 1 EA Lidocaine HCl 2.1 ml ONCE ONCE INJ 10/09/22 22:00 10/09/22 22:01 DC 10/09/22 22:26 2.1 ML Vital Signs/I&O 10/09/22 21:40 Temp 36.8 Pulse 88 Resp 18 B/P (MAP) 118/81 (93) Blood Pressure Mean: 93 Progress Progress Note : Progress Note With sudden onset of ear pain and physical exam findings of ear infection with increased pressure will administer a steroid and Rocephin to help with the infection. Try nasal steroid spray at home to help with opening up sinuses and draining pressure from the ear. Counseled on possibility of ruptured TM. Take full course of antibiotics to treat for infection. Follow-up with ENT or primary care for continued concerns. See ENT especially if she does have a ruptured eardrum develop Departure Impression Primary Impression: Acute otitis media with effusion of left ear Disposition: HOME, SELF-CARE Condition: Stable Departure-Patient Inst. Decision time for Depature: 22:00 Referrals: [facility] MD NO,LOCAL PHYSICIAN (PCP) Primary Care Physician [facility] Patient Instructions: Ear Infections (Otitis Media) in Adults (DC), Ear Infection ED Add. Discharge Instructions: Take the full course of antibiotics to treat for ear infection. The steroid will help with pressure and congestion. Use a nasal steroid spray to help with drainage and relieve pressure in nasal passages and ears. Check with clinic for follow up and to see that your ear is healing. If you have blood and drainage coming from the ear you know that it has ruptured and there is a small hole in the eardrum. If this happens make sure to use ear plugs to avoid getting water in your ear when you shower and follow up with ENT doctor. All discharge instructions reviewed with patient and/or family. Voiced understanding. Scripts Mometasone Furoate (Mometasone Furoate) 50 Mcg/Actuation [place].pump 2 SPRAYS NS BID for Otitis Media/sinus pressure for 14 Days, #17 GM 0 Refills Prov: SKINNY BLISS MD 10/09/22 Amoxicillin/Potassium Clav (Amox Tr-K Clv 875-125 mg Tab) 875 Mg-125 Mg Tablet 1 EACH PO BID for ear infection for 7 Days, #14 TAB 0 Refills Prov: SKINNY BLISS MD 10/09/22 SKINNY BLISS MD Oct 09, 2022 22:05
[2022-10-09] MEDS ORDERED: MOME17SP11 NS (22:06)
[2022-10-09] MEDS ORDERED: AMOX1TAB12 PO (22:06)
== END 2022-10-09 22:30 | disposition home or self-care (01) ==
LOC: EDUNIT# 20:55 → ER FS 20:56
DX: H65.192 Other acute nonsuppurative otitis media, left ear (principal)
CPT/HCPCS: 99284